=== PATIENT | female | born 1950 | race Caucasian/White ===

== ENCOUNTER 2018-06-20 15:52 | Inpatient (IN) | payer MEDICARE ==
[~2018-06-20] VITALS: Ht 172.7 cm; Wt 83.5 kg
--- NOTE | ~2018-06-20 | RHP ---
PATIENT: JONATHAN FREED MEDICAL RECORD: [id number] ACCOUNT: [id number] [facility] : 54 ADMISSION DATE: 06/20/18 REHABILITATION HISTORY AND PHYSICAL EXAMINATION POST ADMISSION PHYSICIAN EXAMINATION ADMITTING DIAGNOSIS: Disuse myopathy. HISTORY OF PRESENT ILLNESS: The patient admitted to the inpatient rehab for disuse myopathy. She is a 67-year-old female patient, has been in a correction facility receiving a lower level of care, but has progressed up to tolerating 3 hours of therapy per day, been in and out of her acute hospital during her stay secondary to leukocytosis and most recent hospitalization for urinary retention obstruction. She has had a Medrano catheter placed for a neurogenic bladder. She has had a short stay in April in acute inpatient rehab for a couple days for developing blood clots in her lower extremities causing her being unable to move them. She was hospitalized, required an aortofemoral runoff study and a TPA treatment. She has got a past medical history of arthritis, coronary artery disease, Graves' disease, hyperlipidemia, hypertension, pneumonia, neuropathy, sleep apnea, hypothyroidism. She has had a thyroid surgery in the past and toe amputation. She is currently requiring close lab monitoring and wound care secondary to some unstagable areas. Medrano catheter is also being managed with close intake and output noted. She has had a GFR of approximately 37, anemia has also been a problem during her stay. She has been having problems also with high blood pressure, deconditioning, debility, impaired mobility, proximal muscle weakness. She is a high fall risk and she has self-care deficit. These are all barriers to her discharge home at this time. The patient has a past history of CVA and lives with her son, daughter, and grandkids. She was set up for moderately independent with her mobility and ADLs prior to this recent hospitalization and decline in her medical and physical condition. She and her family plan for her to return home with home health at her prior level of functioning or better if possible. 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 PAST MEDICAL HISTORY: Significant for arthritis, coronary artery disease, diabetes, Graves disease, hyperlipidemia, neuropathy, pneumonia, sleep apnea, stroke, hypothyroidism, and diabetes. PAST SURGICAL HISTORY: Includes ankle surgery, carotid endarterectomy, cataract removal. She has had surgery on her tibial shaft, foot surgery, hysterectomy, knee abscess, thyroidectomy, toe amputations, and tonsillectomy. ALLERGIES: PENICILLIN, HALDOL, CODEINE, HYDROCODONE, OXYCODONE, STELAZINE, THORAZINE, TYLOX, MELLARIL, AND HYDROCORTISONE. CURRENT MEDICATIONS: Include insulin, she is on 15 units daily of Lantus. She is on a beta carotene vitamin daily. She is on Synthroid 175 mcg daily, duloxetine 60 mg daily, amlodipine 10 mg daily, Tylenol 650 mg q.6 hours p.r.n., Skelaxin 800 mg q.8 hours p.r.n., she is on a low-resistant sliding scale with Humalog, hydralazine 10 mg q.8 hours. She is on Neurontin 100 mg t.i.d., HISTORY AND PHYSICAL [id number] JONATHAN FREED metoprolol 25 mg b.i.d., Mevacor 20 mg at bedtime. HABITS: Does have a history of tobacco use, but not currently. No alcohol use. FAMILY HISTORY: Noncontributory. SOCIAL HISTORY: The patient hopes to return back home with her family members get back to her prior level of functioning. REVIEW OF SYSTEMS: GENERAL: Does complain of weakness and fatigue. HEENT: Denies cold, cough, or congestion. CARDIOVASCULAR: Denies chest pain. PHYSICAL EXAMINATION: VITAL SIGNS: Stable, afebrile. GENERAL: A somewhat obese female, in no distress upon exam. HEENT: Normocephalic and atraumatic. Mucosa moist. NECK: Supple. No lymphadenopathy. LUNGS: Clear at this time with no wheeze, rhonchi, or rales. HEART: Regular rate and rhythm. No murmurs, rubs or gallops. ABDOMEN: Soft, benign, and nontender, nondistended. Positive bowel sounds times 4. EXTREMITIES: No clubbing, cyanosis or edema. NEUROLOGIC: She does have noted proximal muscle weakness, difficulty rising from the bed to the wheelchair. LABORATORY DATA: White count is 9.5, H&H of 7.5 and 23.3, and platelet count was noted to be 712. Her sodium is 142, potassium 3.8, BUN and creatinine of 36 and 1.1, and blood sugar is noted to be 106. Admit UA did show 2+ blood. She had 2+ leukocyte esterase and many bacteria. ASSESSMENT: This is a 67-year-old female patient admitted to rehab with a working diagnosis of disuse myopathy. The patient has potential to make improvement. We instituted the following multidisciplinary therapies include, but not limited to physical, occupational, respiratory, speech, nutritional services, prosthetics and orthotics. Given her complex medical condition and risk for more complications, rehabilitation services cannot be provided at a low level of care such as correction facility. PLAN: 1. Admit to [facility] for intensive inpatient therapy to include the following disciplines: A. Physical therapy to improve gait, all transfer skills and bed mobility to a modified independent level. B. Occupational therapy to a modified independent level. C. Case management to assist with discharge planning and placement options. D. Nutrition to assist with nutritional needs. E. Rehabilitation nursing to assist in monitoring the patient's underlying medical conditions and to assist with any type of bowel or bladder management. 2. The patient's current medication and medical care will be continued. 3. The patient will be placed on standard fall precautions. 4. The patient's estimated length of stay is approximately 7-10 days. 5. I am going to go ahead and treat her UA and see again in the a.m. HISTORY AND PHYSICAL [id number] JONATHAN FREED TRANSINT:[id number] Voice Confirmation ID: [id number] DOCUMENT ID: [id number] 07/06/2018 Edited for gypsy DE LEON notes whether there has been none or any medical/functional change since admission: - No change since preadmission screen. MOISES attests patient continues to be appropriate for IRF: - Continues to be appropriate. ALEXI GOETZ MD CC: [id number] DICTATION DATE: 06/21/18821 BLOOD BANK TECHNICIAN: 06/21/18932 ADM IN [facility] [address] [place] [address]
[2018-06-20 17:51] VITALS: BP 138/49; BMI 28.0
[2018-06-20] MEDS ORDERED: SKELAXIN800 MG PO (18:10)
[2018-06-20] MEDS ORDERED: GABAPENTIN100 MG PO (18:11)
[2018-06-20] MEDS ORDERED: NORVASC10 MG PO (18:13)
[2018-06-20] MEDS ORDERED: CYMBALTA60 MG PO (18:20)
[2018-06-20] MEDS ORDERED: HYDRALAZINE HCL25 MG PO (18:20)
[2018-06-20] MEDS ORDERED: SYNTHROID175 MCG PO (18:24)
[2018-06-20] MEDS ORDERED: LOVASTATIN20 MG PO (18:26)
[2018-06-20] MEDS ORDERED: MULTI-DAY VITAM1 TAB PO (18:28)
[2018-06-20] MEDS ORDERED: METOPROLOL TART25 MG PO (18:29)
[2018-06-20] MEDS ORDERED: ACETAMINOPHEN325 MG PO (18:30)
[2018-06-20] MEDS ORDERED: NOVOLOG100 UNIT/1 SC (18:31)
[2018-06-20] MEDS ORDERED: LANTUS SOL100 UNIT/1 SC (18:34)
[2018-06-20 19:00] VITALS: BP 139/47
--- NOTE | 2018-06-20 19:14 | NUR ---
WOUND NOTES: HAS BEEN HAVING DSG CHANGED EVERY OTHER DAY. LEFT FOOT, BALL OF FOOT, STAGE II, 2X2.5 CM LEFT HEEL- UNSTAGEABLE (ESCAR) 3X2 CM LLE, INSIDE LEG IS BRUISED PURPLE LEFT BIG TOE, DEEP TISSUE INJURY, 0.5X1.5 CM LEFT FOOT PINKY TOE, LATERAL, STAGE II 3X3 CM LEFT KNEE, UNSTAGEABLE (ESCAR), 3X4 CM LLE THIGH, POSTERIOR, BRUISING COCCYX, LEFT SIDE UNSTAGEABLE 0.3X0.3 CM RIGHT FOOT, LATERAL, STAGE II 2X1.5 CM RIGHT FOOT, BALL OF FOOT, UNSTAGEABLE (ESCAR), 0.5X0.3 CM RIGHT FOOT, 1/2 TOE GONE DUE TO INJURY RIGHT FOOT PINKY TOE AMPUTATED (OLD)
[2018-06-20 22:41] LABS: APPEARANCE HAZY (CLEAR); BILIRUBIN NEGATIVE (NEGATIVE); COLOR YELLOW (YELLOW); GLUCOSE NEGATIVE (NEGATIVE); KETONE NEGATIVE (NEGATIVE); NITRITE NEGATIVE (NEGATIVE); PROTEIN 1+ mg/dL (NEGATIVE); SPECIFIC GRAVITY 1.015 (1.005-1.020); UROBILINOGEN NORMAL (NORMAL)
[2018-06-20 22:46] LABS: BACTERIA MANY /hpf (NONE SEEN); EPITHELIAL CELLS 0-5 /hpf (0-5); WHITE CELLS - URINE >50 /hpf (0-5); YEAST >1+ /hpf (NONE SEEN)
--- NOTE | 2018-06-20 22:53 | NUR ---
PT IN BED LOW POSITION, EYES CLOSED, AROUSES EASILY TO VOICE, NO NEEDS NOTED, FLUIDS AND CALL LIGHT WITHIN REACH
[2018-06-21 07:34] LABS: ANION GAP 14.1 mmol/L (8-16); CALCIUM 8.5 mg/dL (8.5-10.1); CARBON DIOXIDE 22.7 mmol/L (21.0-32.0); CREATININE - SERUM 1.1 mg/dL (0.6-1.3); POTASSIUM - SERUM 3.8 mmol/L (3.5-5.1)
[2018-06-21 07:56] LABS: BASOPHILS 1.6 % (0-2); EOSINOPHILS 2.6 % (0-7); HEMATOCRIT 23.3 % (36.0-48.0); IMMATURE GRANULOCYTES 0.5 % (0-5); LYMPHOCYTES 18.2 % (15-50); MCH 29.5 pg (26.0-34.0); MCHC 32.2 g/dL (31.0-37.0); MCV 91.7 fL (80.0-100.0); MEAN PLATELET VOLUME 9.8 fL (7.4-10.4); MONOCYTES 10.5 % (2-11); NEUTROPHILS 66.6 % (40-80); PLATELET COUNT 712 10x3/uL (130-400); RBC 2.54 10x6/uL (4.00-5.40); RDW 18.1 % (11.5-14.5); WBC 9.5 10x3/uL (4.8-10.8)
[2018-06-21 08:16] LABS: HEMOGLOBIN 7.5 g/dL (12-16)
[2018-06-21 08:18] VITALS: BP 153/56
--- NOTE | 2018-06-21 09:47 | NUR ---
SPOKE WITH [facility] MACHINE NURSE RE: MULT WOUNDS THAT NEED MEASURED, DOCUMENTED AND DRESSING CHANGE ORDERS. OT IS GETTING PATIENT IN SHOWER AT THIS TIME.
[2018-06-21 10:13] VITALS: Ht 172.7 cm; Wt 83.5 kg
--- NOTE | 2018-06-21 10:43 | MORECARE ---
CASE MANAGEMENT DISCHARGE SUMMARY PATIENT: JONATHAN FREED UNIT: [id number] ADM DATE: 06/20/18 AGE: 67 : 52 SEX: F ROOM/BED: D.1108 AUTHOR: FRIEDA PAULA PHYSICIAN: REFERRING PHYSICIAN: ALEXI GOETZ MD DATE OF SERVICE: 06/21/18 Discharge Plan Patient Name: JONATHAN FREED Facility: [facility]:[place] : 1950 Planned Disposition: Home Anticipated Discharge Date: 06/23/18 Discharge Date: Expected LOS: 3 Initial Reviewer: [email or web address] Initial Review Date: 06/20/2018 Generated: 06/21/18 11:42 am Patient Name: JONATHAN FREED Page [id number] at 1043 All edits/amendments must be made on the electronic document DICTATION DATE: 06/21/18 1042 HYDROGRAPHIC ENGINEER: GARCIELA 06/21/18 1042 RPT#: [id number] DC DATE: STATUS: ADM IN [facility] [address] [place] [address] END OF REPORT
--- NOTE | 2018-06-21 10:52 | MORECARE ---
CASE MANAGEMENT DISCHARGE SUMMARY PATIENT: JONATHAN FREED UNIT: [id number] ADM DATE: 06/20/18 AGE: 67 : 52 SEX: F ROOM/BED: D.1108 AUTHOR: NISA,DOC PHYSICIAN: REFERRING PHYSICIAN: ALEXI GOETZ MD DATE OF SERVICE: 06/21/18 Discharge Plan Patient Name: JONATHAN FREED Facility: [facility]:[place] : 1950 Planned Disposition: Home Anticipated Discharge Date: 06/23/18 Discharge Date: Expected LOS: 3 Initial Reviewer: [email or web address] Initial Review Date: 06/20/2018 Generated: 06/21/18 11:52 am DCP- Discharge Planning Updated by [email or web address]: Marjan Luna on 06/21/18 9:[address] Patient Name: JONATHAN FREED Admission Status: Elective Accout number: [id number] Admission Date: 06-20-2018 : 1950 Admission Diagnosis: Attending: RACHEL GOETZ Current LOS: 1 Anticipated DC Date: 06-23-2018 Planned Disposition: Home Primary Insurance: MEDICARE REHAB PPS Discharge Planning Comments: CM met with patient to complete initial dc planning assessment. CM educated patient on the CM role and verbal consent given by patient to complete assessment. Patient lives at home independently with her and kids. At discharge patient plans to return home independently and feels this is a safe discharge. CM discussed availability of home health, rehab services, and medical equipment. Patient denied known discharge needs at this time. CM will continue to follow and will assist as needed with dc plans/needs. Future appointments: HAS APPT WITH [facility] AND [facility] IN JULY. Health And Safety Trainer: Marjan Luna RN, [facility] DCPIA - Discharge Planning Initial Assessment Updated by [email or web address]: Marjan Luna on 06/21/18 10:44 am * Is the patient Alert and Oriented? Yes * How many steps to enter\exit or inside your home? Three * PCP Dr. Araiza * Pharmacy [facility] on [address] * Preadmission Environment Home with Family * ADLs Independent * Equipment None * List name and contact numbers for known caregivers / representatives who currently or will assist patient after discharge: [facility] - [phone] * Verbal permission to speak to the caregivers and representatives has been obtained from the patient. Yes * Community resources currently utilized None * Additional services required to return to the preadmission environment? No * Can the patient safely return to the preadmission environment? Yes * Has this patient been hospitalized within the prior 30 days at any hospital? No Last DP export: 06/21/18 9:43 a Patient Name: JONATHAN FREED Page [phone] at 1052 All edits/amendments must be made on the electronic document DICTATION DATE: 06/21/18 105 HEALTHCARE RECRUITER: GRACIELA 06/21/18 1052 RPT#: [id number] NH DATE: STATUS: ADM IN [facility] [address] [place] [address] END OF REPORT
--- NOTE | 2018-06-21 12:18 | NUR ---
Pt admitted 06/20/18 with the following skin issues: Left met head: 1cm x 6cm x esacr (chronic nonhealing ulcer) (pt is diabetic) Left tip of great toe: 1cm x 2cm x escar/scab (chronic nonhealing ulcer) Left heel: 6cm x 4cm x escar (unstageable pressure injury) Left upper knee: 1cm x 1cm x escar (nonhealing chronic) Left lower knee: 3cm x 5cm x escar (nonhealing chronnic) Right plantar foot: 1cm x 1cm x 0.5cm (nonhealing chronic ulcer) (diabetic) Right leg: numerous scratches and bruises Bilateral arms: numerous scratches and bruises Sacrum/coccyx: Stage 2 pressure injury with (0.5cm x 0.5cm) with periwound blanchable red. Treatment at [facility] was medihoney every other day dressing changes. Wound care recommends the same. Wound care will continue to monitor.
--- NOTE | 2018-06-21 12:22 | NUR ---
SEE WOUND CARE ASSESSMENT NOTES FROM [facility] FOR WOUND MEASURMENTS AND WOUND CARE INSTRUCTIONS ON ALL WOUNDS.
--- NOTE | 2018-06-21 15:46 | NUR ---
PRE MEDS GIVEN FOR BLOOD TRANSFUSION. TRANSFUSION CONSENT SIGNED. VSS. FIRST UNIT OF BLOOD VERIFIED WITH ANOTHER NURSE AND BLOOD TRANSFUSION STARTED.
--- NOTE | 2018-06-21 16:33 | NUR ---
NO CHANGE IN ASSESSMENT. CL IN REACH. NO C/O PAIN AT THIS TIME.
--- NOTE | 2018-06-21 18:41 | NUR ---
FIRST UNIT BLOOD TRANSFUSION COMPLETED WO ANY ADVERSE REACTIONS. REPORTED TO KYLER ORTEGA THAT SECOND UNIT BLOOD TRANSFUSION NEEDS TO BE GIVEN.
[2018-06-21 19:00] VITALS: BP 142/55
--- NOTE | 2018-06-21 19:40 | NUR ---
AWAKE AND ALERT. RESPIRATIONS UNLABORED. SECOND UNIT OF PRBC STARTED. SYMPTOMS OF ADVERSE REACTIONS REVIEWED WITH PATIENT. VOICES UNDERSTANDING. NO ACUTE SALINE LOCK TO LEFT HAND/THUMB INTACT WITH NO SIGNS IF INFILTRATION. NOTED VERY LIMITED USE OF LEFT LOWER LEG. AGUILAR PATENT. CALL LIGHT IN REACH.
--- NOTE | 2018-06-21 22:40 | NUR ---
SECOND UNIT OF PRBC COMPLETED AT 2215. NO SIGNS OF ADVERSE REACTION. RESTING IN BED WITH NO ACUTE DISTRESS NOTED.
[2018-06-22 00:17] VITALS: BP 140/51
--- NOTE | 2018-06-22 01:40 | NUR ---
RESTING IN BED. AWAKENS EASILY FOR SCHEDULED MEDICATION. RESPIRATIONS UNLABORED. NO DISTRESS NOTED. CALL LIGHT IN REACH.
--- NOTE | 2018-06-22 04:47 | NUR ---
WOUND CARE DONE. C/O FEELING NEED TO VOID BUT CANT. AGUILAR CATHETER NOTED WITH NO URINE OUTPUT. EXAMINED AND SHOWED AGUILAR CATHETER HAD COME OUT OF BLADDER WITH BULB DEFLATED. PATIETN STATES SHE HAD THE CATHETER FOR ABOUT A WEEK DUE TO BEING UNABLE TO VOID. BLADDER SCAN DONE AND SHOWED 813ML IN BLADDER. NEW AGUILAR CATHETER 16FR INSERTED USING STERILE TECHNIQUE WITH >400ML IMMEDIATE RETURN. SHE STATES SHE FEELS RELIEVED.
[2018-06-22 07:42] LABS: BASOPHILS 0.6 % (0-2); EOSINOPHILS 0.8 % (0-7); IMMATURE GRANULOCYTES 0.5 % (0-5); LYMPHOCYTES 10.4 % (15-50); MCH 30.5 pg (26.0-34.0); MCHC 33.8 g/dL (31.0-37.0); MCV 90.2 fL (80.0-100.0); MEAN PLATELET VOLUME 9.7 fL (7.4-10.4); MONOCYTES 8.4 % (2-11); NEUTROPHILS 79.3 % (40-80); PLATELET COUNT 711 10x3/uL (130-400); RDW 17.7 % (11.5-14.5)
[2018-06-22 07:43] LABS: ANION GAP 11.4 mmol/L (8-16); CALCIUM 8.4 mg/dL (8.5-10.1); CARBON DIOXIDE 24.7 mmol/L (21.0-32.0); CREATININE - SERUM 1.1 mg/dL (0.6-1.3); POTASSIUM - SERUM 4.1 mmol/L (3.5-5.1)
[2018-06-22 07:56] LABS: HEMATOCRIT 29.6 % (36.0-48.0); RBC 3.28 10x6/uL (4.00-5.40); WBC 15.3 10x3/uL (4.8-10.8)
[2018-06-22 08:12] VITALS: BP 144/53
--- NOTE | 2018-06-22 08:15 | NUR ---
PT RESTING IN BED WITH EYES OPEN CALL LIGHT IN REACH NO PROBLEMS WILL MONITER
--- NOTE | 2018-06-22 12:18 | NUR ---
SITTING UP IN WC IN ROOM EATING LUNCH.CL IN REACH.
--- NOTE | 2018-06-22 18:26 | NUR ---
PT RESTING IN BED WITH EYES OPEN CALL LIGHT IN REACH WILL MONITER
[2018-06-22 19:36] VITALS: BP 106/40; BP 145/55
--- NOTE | 2018-06-22 19:44 | NUR ---
AWAKE AND ALERT. RESTING IN BED. RESPIRATIONS UNLABORED. SALINE LOCK TO LEFT HAND INTACT WITH NO SIGNS OF INFILTRATION. AGUILAR PATENT DRAINING VASHTI URINE. NO ACUTE DISTRESS NOTED. CALL LIGHT IN REACH.
--- NOTE | 2018-06-23 04:56 | NUR ---
QUIET HOURS. NO ACUTE CHANGES IN CONDITION THIS SHIFT. AGUILAR PATENT. SALINE LOCK INTACT TO LEFT HAND. NO DISTRESS NOTED.
[2018-06-23 07:11] LABS: ANION GAP 14.3 mmol/L (8-16); CALCIUM 8.2 mg/dL (8.5-10.1); CARBON DIOXIDE 21.8 mmol/L (21.0-32.0); CREATININE - SERUM 1.1 mg/dL (0.6-1.3); POTASSIUM - SERUM 4.1 mmol/L (3.5-5.1)
[2018-06-23 07:20] LABS: BASOPHILS 0.4 % (0-2); EOSINOPHILS 1.7 % (0-7); HEMATOCRIT 29.6 % (36.0-48.0); HEMOGLOBIN 9.7 g/dL (12-16); IMMATURE GRANULOCYTES 0.5 % (0-5); LYMPHOCYTES 12.6 % (15-50); MCH 29.9 pg (26.0-34.0); MCHC 32.8 g/dL (31.0-37.0); MCV 91.4 fL (80.0-100.0); MEAN PLATELET VOLUME 9.9 fL (7.4-10.4); MONOCYTES 9.2 % (2-11); NEUTROPHILS 75.6 % (40-80); PLATELET COUNT 697 10x3/uL (130-400); RBC 3.24 10x6/uL (4.00-5.40); RDW 17.9 % (11.5-14.5)
[2018-06-23 07:39] LABS: WBC 11.3 10x3/uL (4.8-10.8)
[2018-06-23 08:00] VITALS: BP 142/48
--- NOTE | 2018-06-23 08:16 | NUR ---
PATIENT IS ALERT/ORIENT. LYING IN BED FOR BREAKFAST. CALL LIGHT WITHIN REACH. VOICES NO NEEDS. WILL CONTINUE WITH PLAN OF CARE
--- NOTE | 2018-06-23 12:44 | NUR ---
Nutrition Follow Up: Pt stated that her appetite is good. She said that she has taken Evens before and is willing to try again. RD encouraged pt to continue with good po intake. Diet: ADA PO Intake: 89% meal avg BM: 06/22/18 Wound Care note reviewed - pt with multiple ulcers Meds noted including MV Labs reviewed Rec continue current diet. Will order Evens BID. Rec Vit C, Zinc daily. RD following.
--- NOTE | 2018-06-23 13:36 | NUR ---
MAX TO MODERATE ASST FROM BED TO WHEELCHAIR USING SLIDING BOARD AND ASST OF TWO
--- NOTE | 2018-06-23 17:48 | NUR ---
PATIENT SITTING UP IN BED TO EAT SUPPER. CALL LIGHT WITHIN REACH. TALKING ON CELL PHONE.
--- NOTE | 2018-06-23 18:32 | NUR ---
I have reviewed this patient and I concur with the Shift Assessment completed by the Licensed Practical Nurse today this shift.
[2018-06-23 19:29] VITALS: BP 125/43
--- NOTE | 2018-06-23 19:29 | NUR ---
GREETED PATIENT AND INTRODUCED MYSELF. PATIENT IS LAYING IN SUPINE POSITION RESTING. DENIES ANY EVIDENCE OF PAIN. VITAL SIGNS TAKEN.
--- NOTE | 2018-06-23 23:04 | NUR ---
PATIENT RESTING QUIETLY LAYING IN SUPINE POSITION. HOB AT 30 DEGREES. RESPIRATIONS EVEN. NO S/S OF DISTRESS. SR UP X 2. BED IN LOWEST POSITION. CALL LIGHT IN REACH.
--- NOTE | 2018-06-24 07:24 | NUR ---
ALERT AND ORIENTED. NO C/O PAIN. RESP EVEN AND UNLABORED. CL IN REACH.
[2018-06-24 08:25] VITALS: BP 163/64
--- NOTE | 2018-06-24 09:48 | NUR ---
MOD ASSIST WITH SLIDEBOARD BED TO . PARTICIPATING IN THERAPY AT THIS TIME.
--- NOTE | 2018-06-24 11:25 | NUR ---
PATIENT STATES BATHED PER OT THIS AM.
--- NOTE | 2018-06-24 12:47 | NUR ---
NO DISTRESS NOTED. CL IN REACH. RESP EVEN AND UNLABORED.
[2018-06-24 15:56] VITALS: BP 145/55
--- NOTE | 2018-06-24 17:32 | NUR ---
SITTING IN WC EATING DINNER. CHAIR ALARM IS ON.
[2018-06-24 19:04] VITALS: BP 136/46
--- NOTE | 2018-06-24 19:04 | NUR ---
GREETED PATIENT AND INTRODUCED MYSELF. PATIENT IS LAYING IN BED IN SUPINE POSITION. DENIES ANY PAIN AT THIS TIME. VITAL SIGNS OBTAINED. CALL LIGHT IN REACH.
--- NOTE | 2018-06-24 23:00 | NUR ---
PATIENT RESTING QUIETLY WITH EYES CLOSED. HOB AT 30 DEGREES. RESPIRATIONS EVEN. NO S/S OF DISTRESS. SIDE RAILS UP X 2. BED IN LOWEST POSITION. CALL LIGHT IN REACH.
--- NOTE | 2018-06-25 01:39 | NUR ---
RECHECKED PATIENTS BLOOD PRESSURE PRIOR TO ADMINISTRATION OF HYDRALIZINE. BP WAS 145/55.
[2018-06-25 07:40] VITALS: BP 145/55
--- NOTE | 2018-06-25 07:40 | NUR ---
ASSESSMENT AND VS COMPLETED.IS ALERT AND ORIENTED.AGUILAR PSTENT TO GRAVITY WITH CLOUDY YELLOW URINE IN TUBING.WILL CONTINUE WITH CURRENT PLAN OF CARE.CL IN EASY REACH,BED IN LOW POSITION.
[2018-06-25 17:00] VITALS: BP 152/53
[2018-06-25 19:10] VITALS: BP 152/51
--- NOTE | 2018-06-25 19:10 | NUR ---
GREETED PATIENT AND INTRODUCED MYSELF. PATIENT IS LAYING IN BED IN SUPINE POSITION. HOB AT 30 DEGREES. DENIES ANY PAIN AT THIS TIME OR OTHER NEEDS. CALL LIGHT IN REACH. VITAL SIGNS OBTAINED.
--- NOTE | 2018-06-25 19:30 | NUR ---
PATIENT CLEANED OF INCONTINENT BM. PATIENT PRODUCED LARGE FORMED STOOL. REPOSITIONED FOR COMFORT. CALL LIGHT IN REACH.
--- NOTE | 2018-06-26 00:24 | NUR ---
PATIENT RESTING QUIETLY IN SUPINE POSITION. HOB AT 30 DEGREES. RESPIRATIONS EVEN. NO S/S OF DISTRESS. SR UP X 2. BED IN LOWEST POSITION. CALL LIGHT IN REACH.
[2018-06-26 06:27] LABS: BASOPHILS 0.4 % (0-2); EOSINOPHILS 1.8 % (0-7); HEMOGLOBIN 9.8 g/dL (12-16); IMMATURE GRANULOCYTES 0.4 % (0-5); LYMPHOCYTES 16.8 % (15-50); MCH 29.6 pg (26.0-34.0); MCHC 31.6 g/dL (31.0-37.0); MCV 93.7 fL (80.0-100.0); MEAN PLATELET VOLUME 9.9 fL (7.4-10.4); MONOCYTES 9.1 % (2-11); NEUTROPHILS 71.5 % (40-80); PLATELET COUNT 634 10x3/uL (130-400); RBC 3.31 10x6/uL (4.00-5.40); RDW 17.3 % (11.5-14.5); WBC 9.4 10x3/uL (4.8-10.8)
[2018-06-26 06:37] LABS: ANION GAP 9.3 mmol/L (8-16); CALCIUM 8.6 mg/dL (8.5-10.1); CARBON DIOXIDE 26.9 mmol/L (21.0-32.0); CREATININE - SERUM 1.1 mg/dL (0.6-1.3); POTASSIUM - SERUM 4.2 mmol/L (3.5-5.1)
--- NOTE | 2018-06-26 08:00 | NUR ---
PATIENT IS ALERT/ORIENT. CALL LIGHT WITHIN REACH. VOICES NO NEEDS AT THIS TIME. WILL CONTINUE WITH PLAN OF CARE
[2018-06-26 08:01] VITALS: BP 154/60
--- NOTE | 2018-06-26 10:15 | NUR ---
PATIENT IN ROOM, GETTING READY FOR THERAPY. DENIES PAIN/DISC AT THIS TIME.
--- NOTE | 2018-06-26 11:55 | NUR ---
GLUCOSE LEVEL 185, TWO UNITS OF SLIDING SCALE INSULIN GIVEN
--- NOTE | 2018-06-26 17:00 | NUR ---
PATIENT HELPED BACK TO BED BY THERAPY. MAX ASST OF ONE WITH SLIDING BOARD. PATIENT SITTING UP IN BED TO EAT SUPPER
--- NOTE | 2018-06-26 22:07 | NUR ---
PT IN BED LOW POSITION, EYES OPEN, NO NEEDS VERBALIZED OR NOTED, FLUIDS AND CALL LIGHT WITHIN REACH, AGUILAR SECURE AND DRAINING,
[2018-06-27 01:45] VITALS: BP 126/41; BP 135/45
--- NOTE | 2018-06-27 03:04 | NUR ---
PT IN BED LOW POSITION, EYES CLOSED, AROUSES TO VOICE, BREATHING EVEN AND UNLABORED, NO NEEDS NOTED, FLUIDS AND CALL LIGHTS WITHIN REACH
--- NOTE | 2018-06-27 07:35 | NUR ---
RESTING WITH EYES CLOSED. NO DISTRESS NOTED. CL IN REACH.
[2018-06-27 09:06] VITALS: BP 155/60
--- NOTE | 2018-06-27 09:22 | NUR ---
SHOWER DONE PER OT THIS AM.
--- NOTE | 2018-06-27 10:02 | NUR ---
ACCIDENT BM ON ON SHOWER BENCH.
--- NOTE | 2018-06-27 11:28 | NUR ---
PARTICIPATING IN THERPAY THIS AM.
--- NOTE | 2018-06-27 12:46 | NUR ---
Nutrition Follow Up: Pt stated that her appetite is good. She said that she is drinking Evens. RD encouraged pt to continue with good po intake, drink Evens BID, etc. Diet: ADA; Evens BID PO Intake: 97% meal avg BM: 06/27/18 Labs reviewed Meds noted including MV Rec continue current diet, supplement regimen. RD following.
--- NOTE | 2018-06-27 14:45 | NUR ---
PATIENT WAS ADMITTED TO REHAB FROM [facility]. DISCHARGE PLANS ARE FOR PATIENT TO RETURN HOME WITH FAMILY. WILL CONTINUE TO FOLLOW WITH PATIENT.
--- NOTE | 2018-06-27 15:03 | NUR ---
RESTING IN BED WO C/O PAIN. RESP EVEN AND UNLABORED. CL IN REACH. SL UP X2.
[2018-06-27 16:25] VITALS: BP 130/58
--- NOTE | 2018-06-27 17:45 | NUR ---
NO CHANGE IN ASSESSMENT. EATING DINNER. CL IN REACH.
--- NOTE | 2018-06-28 01:24 | NUR ---
PT IN BED LOW POSITION, EYES CLOSED AROUSES EASILY TO VOICE, AGUILAR PATENT AND DRAINING PROPERLY, NO NEEDS NOTED, FLUIDS AND CALL LIGHT WITHIN REACH
[2018-06-28 02:11] VITALS: BP 153/54
[2018-06-28 07:40] LABS: ANION GAP 11.6 mmol/L (8-16); CALCIUM 8.7 mg/dL (8.5-10.1); CARBON DIOXIDE 26.8 mmol/L (21.0-32.0); CREATININE - SERUM 1.1 mg/dL (0.6-1.3); POTASSIUM - SERUM 4.4 mmol/L (3.5-5.1)
[2018-06-28 07:45] LABS: BASOPHILS 0.4 % (0-2); EOSINOPHILS 2.3 % (0-7); HEMATOCRIT 31.7 % (36.0-48.0); HEMOGLOBIN 10.2 g/dL (12-16); IMMATURE GRANULOCYTES 0.2 % (0-5); LYMPHOCYTES 17.6 % (15-50); MCH 29.9 pg (26.0-34.0); MCHC 32.2 g/dL (31.0-37.0); MEAN PLATELET VOLUME 9.9 fL (7.4-10.4); MONOCYTES 9.8 % (2-11); NEUTROPHILS 69.7 % (40-80); PLATELET COUNT 558 10x3/uL (130-400); RBC 3.41 10x6/uL (4.00-5.40); RDW 16.9 % (11.5-14.5); WBC 8.4 10x3/uL (4.8-10.8)
--- NOTE | 2018-06-28 07:56 | NUR ---
ALERT AND ORIENTED. NO DISTRESS NOTED. CL IN REACH. RESP EVEN AND UNLABORED.
[2018-06-28 08:00] VITALS: BP 139/60
--- NOTE | 2018-06-28 12:28 | NUR ---
PARTICIPATED IN THERAPY THIS AM. UP IN EATING LUNCH AT THIS TIME.
[2018-06-28 15:51] VITALS: BP 130/54
--- NOTE | 2018-06-28 16:18 | NUR ---
NO CHANGE IN ASSESSMENT. RESTING WO C/O PAIN. CL IN REACH. BED ALARM ON.
--- NOTE | 2018-06-28 19:31 | NUR ---
AWAKE AND ALERT. ADJUSTING TO ROOM. SON AT BEDSIDE AND SIGNED ADMISSION PAPERWORK. LEFT HIP DRESSING INTACT. SALINE LOCK TO LEFT ARM INTACT. DESIGNER ARCHITECT ON. NO ACUTE DISTRESS NOTED. CALL LIGHT IN REACH.
--- NOTE | 2018-06-28 19:35 | NUR ---
AWAKE AND ALERT. RESTING IN BED WITH NO DISTRESS NOTED. LAUREN PATENT. CALL LIGHT IN REACH.
[2018-06-28 20:29] VITALS: BP 136/52
--- NOTE | 2018-06-29 01:55 | NUR ---
RESTING IN BED WITH RESPIRATIONS UNLABORED. NO C/O DISCOMFORTS. NO DISTRESS NOTED. CALL LIGHT IN REACH.
--- NOTE | 2018-06-29 05:09 | NUR ---
DRESSINGS CHANGES DONE ORDERED. QUIET HOURS. AGUILAR PATENT WITH NOTED SEDIMENT AND CLOUDINESS IN URINE. MESSAGE LEFT FOR DR TO SEE ON ROUNDS. NO DISTRESS NOTED. CALL LIGHT IN REACH.
[2018-06-29 08:38] VITALS: BP 128/47
--- NOTE | 2018-06-29 10:33 | NUR ---
THE PATIENT WAS WATCHING TELEVISION WHEN STAFF ENTERED HER ROOM. BED IS IN THE LOW POSITION WITH SIDERAILS X2 AND CALL LIGHT IN REACH. PATIENT DEMONSTRATES APPROPRIATE USE OF A CALL LIGHT. THE PATIENT APPEARS COMFORTABLE WITH NO QUESTIONS OR CONCERNS AT THIS TIME.
--- NOTE | 2018-06-29 17:42 | NUR ---
THE PATIENT IS AWAKE AND TALKING TO STAFF. SHE HAS NO QUESTIONS OR CONCERNS AT THIS TIME.
[2018-06-29 19:09] VITALS: BP 120/51
--- NOTE | 2018-06-29 19:41 | NUR ---
RESTING IN BED WITH RESPIRATIONS UNLABORED. DRESSINGS INTACTTO BLES AND COCCYX. AGUILAR PATENT. NO DISTRESS NOTED. CALL LIGHT IN REACH.
--- NOTE | 2018-06-30 05:16 | NUR ---
QUIET HOURS. RESTING IN BED. AGUILAR PATENT. NO ACUTE CHANGES IN CONDITION THIS SHIFT.
[2018-06-30 06:05] LABS: BASOPHILS 0.3 % (0-2); EOSINOPHILS 1.1 % (0-7); HEMOGLOBIN 9.9 g/dL (12-16); IMMATURE GRANULOCYTES 0.2 % (0-5); LYMPHOCYTES 15.4 % (15-50); MCHC 31.9 g/dL (31.0-37.0); MCV 93.9 fL (80.0-100.0); MEAN PLATELET VOLUME 9.6 fL (7.4-10.4); MONOCYTES 10.3 % (2-11); NEUTROPHILS 72.7 % (40-80); PLATELET COUNT 486 10x3/uL (130-400); RDW 16.8 % (11.5-14.5)
[2018-06-30 06:20] LABS: ANION GAP 11.9 mmol/L (8-16); CALCIUM 8.6 mg/dL (8.5-10.1); CARBON DIOXIDE 25.6 mmol/L (21.0-32.0); CREATININE - SERUM 1.2 mg/dL (0.6-1.3); POTASSIUM - SERUM 4.5 mmol/L (3.5-5.1)
--- NOTE | 2018-06-30 18:47 | NUR ---
PT RESTING IN BED WITH EYES OPEN CALL LIGHT IN REACH NO PROBLEMS WILL MONITER
--- NOTE | 2018-06-30 19:19 | NUR ---
PATIENT IS RESTING IN HER BED. SHE DENIES ANY NEEDS AT THIS TIME. BED IS DOWN LOW WITH SIDE RAILS UP X2. CALL LIGHT IS IN REACH.
[2018-06-30 20:00] VITALS: BP 134/49
--- NOTE | 2018-07-01 | NUR ---
PATIENT IS SLEEPING. BED IS DOWN LOW WITH SIDE RAILS UP X2. CALL LIGHT IS IN REACH.
--- NOTE | 2018-07-01 04:00 | NUR ---
PATIENT IS SITTING UP ON SIDE OF THE BED. HE DENIES ANY NEEDS. BED IS DOWN LOW WITH SIDE RAILS UP X2. CALL LIGHT IS IN REACH.
--- NOTE | 2018-07-01 04:02 | NUR ---
PATIENT IS SLEEPING. NO SIGNS OF DISTRESS. BED IS DOWN LOW WITH SIDE RAILS UP X2 AND CALL LIGHT IN REACH.
--- NOTE | 2018-07-01 09:00 | NUR ---
PT AM MEDS ADMINISTERED. PT DENIES NEEDS. WCTM.
--- NOTE | 2018-07-01 17:14 | NUR ---
PT EATING DINNER, DENIES NEEDS. WCTM.
--- NOTE | 2018-07-01 18:55 | NUR ---
PATIENT IS RESTING IN HER BED WITH EYES CLOSED. NO SIGNS OF DISTRESS. BED IS DOWN LOW WITH SIDE RAILS UP X2. CALL LIGHT IS IN REACH.
[2018-07-01 20:00] VITALS: BP 137/50
--- NOTE | 2018-07-01 20:35 | NUR ---
PATIENT'S DRESSING CHANGE AND BED BATH COMPLETE.
--- NOTE | 2018-07-02 | NUR ---
PATIENT IS RESTING IN HER BED AND APPEARS TO BE SLEEPING. HER BED IS DOWN LOW WITH SIDE RAILS UP X2. CALL LIGHT IS IN REACH.
--- NOTE | 2018-07-02 04:00 | NUR ---
PATIENT IS RESTING IN HER BED WITH EYES CLOSED.
--- NOTE | 2018-07-02 08:00 | NUR ---
RESTING QUIETLY.EATING BREAKFAST.CL IN REACH.
[2018-07-02 08:03] VITALS: BP 142/53
--- NOTE | 2018-07-02 09:27 | NUR ---
PATIENT SITTING UP IN BED AFTER BREAKFAST, READING A NEW PAPER. PATIENT IS ALERT/ORIENT. CALL LIGHT WITHIN REACH. VOICES NO NEEDS AT THIS TIME. WILL CONTINUE WITH PLAN OF CARE
--- NOTE | 2018-07-02 11:55 | NUR ---
GLUCOSE LEVEL 172. TWO UNITS OF SLIDING SCALE INSULIN GIVEN PER ORDERS
--- NOTE | 2018-07-02 16:08 | NUR ---
PATIENT IS A TOTAL ASST FROM BED TO WHEELCHAIR USING A SLIDING BOARD AND ASST OF ONE TO TWO PEOPLE
[2018-07-02 19:16] VITALS: BP 139/46
--- NOTE | 2018-07-02 19:19 | NUR ---
AWAKE AND ALERT. RESTING IN BED. RESPIRATIONS UNLABORED. AGUILAR PATENT. CURRENTLY ON ANTIBIOTIC THERARY RELATED TO UTI WITH NO SIGNS OF ADVERSE REACTION. CALL LIGHT IN REACH. NO DISTRESS NOTED.
--- NOTE | 2018-07-03 02:07 | NUR ---
RESTING IN BED WITH RESPIRATIONS UNLABORED AND NO DISTRESS NOTED. LAUREN PATENT. CALL LIGHT IN REACH.
--- NOTE | 2018-07-03 05:30 | NUR ---
DRESSING CHANGES DONE. QUIET HOURS. NO ACUTE CHANGES IN CONDITION THIS SHIFT. NO DISTRESS NOTED. AGUILAR PATENT WITH CLOUDY URINE WITH SEDIMENT NOTED. IS ON ANTIBIOTICS RELATED TO UTI.
[2018-07-03 06:19] LABS: BASOPHILS 0.5 % (0-2); EOSINOPHILS 1.8 % (0-7); HEMATOCRIT 31.9 % (36.0-48.0); HEMOGLOBIN 10.1 g/dL (12-16); IMMATURE GRANULOCYTES 0.3 % (0-5); LYMPHOCYTES 19.8 % (15-50); MCH 29.9 pg (26.0-34.0); MCHC 31.7 g/dL (31.0-37.0); MCV 94.4 fL (80.0-100.0); MEAN PLATELET VOLUME 10.2 fL (7.4-10.4); MONOCYTES 13.9 % (2-11); NEUTROPHILS 63.7 % (40-80); PLATELET COUNT 508 10x3/uL (130-400); RBC 3.38 10x6/uL (4.00-5.40); WBC 7.9 10x3/uL (4.8-10.8)
[2018-07-03 06:24] LABS: ANION GAP 13.2 mmol/L (8-16); CALCIUM 8.6 mg/dL (8.5-10.1); CREATININE - SERUM 1.2 mg/dL (0.6-1.3); POTASSIUM - SERUM 4.2 mmol/L (3.5-5.1)
--- NOTE | 2018-07-03 08:15 | NUR ---
PT RESTING IN BED EATING BREAKFAST TOLERATING WELL WILL MONITER
--- NOTE | 2018-07-03 09:41 | NUR ---
Nutrition Follow Up: Chart reviewed Diet: ADA; Evens BID PO Intake: 75% meal avg BM: 06/28/18 - no BM x 5 days Labs reviewed Meds noted including MV Rec continue current diet, supplement regimen. RD following.
--- NOTE | 2018-07-03 16:39 | NUR ---
PT RESTING IN BED WITH EYES OPEN CALL LIGHT IN REACH NO PROBLEMS WILL MONITER
--- NOTE | 2018-07-03 17:07 | NUR ---
PT RESTING IN BED WITH EYES OPEN CALL LIGHT IN REACH WILL MONITER
--- NOTE | 2018-07-03 18:05 | NUR ---
LaYING IN BED WATCHING TV. DENIES NEEDS. CALL LIGHT IN REACH
--- NOTE | 2018-07-03 23:37 | NUR ---
PT IN BED LOW POSITION, WATCHING TV, PLEASANT, NO NEEDS VERBALIZED, FLUIDS AND CALL LIGHT WITHIN REACH
--- NOTE | 2018-07-04 01:45 | NUR ---
PT IN BEDLOW POSITION, EYES CLOSED, AROUSES EASILY TO VOICE, NO NEEDS NOTED, FLUIDS AND CALL LIGHT WITHIN REACH
[2018-07-04 03:48] VITALS: BP 119/46
--- NOTE | 2018-07-04 09:45 | NUR ---
PT PARTICIPATING IN THERAPY AT THIS TIME. DENIES NEEDS. WCTM.
[2018-07-04 09:47] VITALS: BP 132/52
--- NOTE | 2018-07-04 18:31 | NUR ---
PT RESTING IN BED, DENIES NEEDS. WCTM.
[2018-07-04 20:00] VITALS: BP 134/41
--- NOTE | 2018-07-04 20:10 | NUR ---
PATIENT IS RESTING IN HER BED WITH EYES CLOSED. BED IS DOWN LOW WITH SIDE RAILS UP X2. CALL LIGHT IS IN REACH.
--- NOTE | 2018-07-05 | NUR ---
PATIENT IS SLEEPING.
[2018-07-05 06:18] LABS: BASOPHILS 0.4 % (0-2); EOSINOPHILS 2.6 % (0-7); HEMATOCRIT 30.4 % (36.0-48.0); HEMOGLOBIN 9.6 g/dL (12-16); IMMATURE GRANULOCYTES 0.2 % (0-5); LYMPHOCYTES 19.2 % (15-50); MCH 29.5 pg (26.0-34.0); MCHC 31.6 g/dL (31.0-37.0); MCV 93.5 fL (80.0-100.0); NEUTROPHILS 61.6 % (40-80); PLATELET COUNT 474 10x3/uL (130-400); RBC 3.25 10x6/uL (4.00-5.40)
[2018-07-05 06:35] LABS: ANION GAP 11.9 mmol/L (8-16); CALCIUM 8.4 mg/dL (8.5-10.1); CARBON DIOXIDE 25.1 mmol/L (21.0-32.0); CREATININE - SERUM 1.2 mg/dL (0.6-1.3)
--- NOTE | 2018-07-05 08:41 | NUR ---
Wound care recommends continuing with medihoney to BLE wounds and mepilex to sacrum. Also continue assisting/reminding pt to turn/reposition every 2 hours while in bed and float heels. Wound care continues monitoring.
--- NOTE | 2018-07-05 09:20 | NUR ---
PT AM MEDS ADMINISTERED. BP MEDS HELD D/T BP OF 116/38. PT PARTICIPATING IN THERAPY AT THIS TIME AND DENIES NEEDS. WCTM.
[2018-07-05 10:53] VITALS: BP 116/38
--- NOTE | 2018-07-05 16:13 | NUR ---
CARE TEAM MEETING: PATIENT PROGRESSING IN THERAPY AND WILL DISCHARGE HOME WITH FAMILY IN AM. WILL CONTINUE TO FOLLOW WITH PATIENT
--- NOTE | 2018-07-05 17:51 | NUR ---
PT EATING DINNER, DENIES NEEDS. WCTM.
--- NOTE | 2018-07-05 19:09 | NUR ---
PATIENT IS RESTING IN HER BED. SHE DENIES ANY NEEDS.
[2018-07-05 20:30] VITALS: BP 135/75; BP 139/47
--- NOTE | 2018-07-06 | NUR ---
PATIENT IS SLEEPING.
--- NOTE | 2018-07-06 04:00 | NUR ---
PATIENT IS SLEEPING.
--- NOTE | 2018-07-06 08:15 | NUR ---
PT RESTING IN BED EATING BREAKFAST CALL LIGHT IN REACH WILL MONITER
--- NOTE | 2018-07-06 09:57 | NUR ---
PATIENT DISCHARGING HOME TODAY WITH FAMILY. [facility] WILL PROVIDE THERAPY AT HOME. JC HAS DELIVERED A WHEELCHAIR TO PATIENT. JEANNE GRANADOS 07/14/18 @ 10:10, DR. WOLFF OFFICE WILL CALL PATIENT WITH AN APPOINTMENT. PATIENT CHOICE FORM AND IMFM FORMS SIGNED, COPY GIVEN TO PATIENT AND FILED IN CHART. DISCHARGE INSTRUCTIONS WITH FIM DATA FAXED TO PCP, HOME HEALTH AND REVIEWED WITH PATIENT.
--- NOTE | 2018-07-06 10:08 | NUR ---
SITTING UP IN BED READING PAPER.CALL LIGHT IN REACH.
--- NOTE | 2018-07-06 16:45 | NUR ---
PT DISCHARGED TO HOME WITH SON VIA WHEELCHAIR DISCHARGE SUMMARY AND MEDS REVIEWED NO QUESTIONS MEDS CALLED INTO [facility] IN [place]
== END 2018-07-06 17:07 | disposition home health service (06) | DRG 92 ==
LOC: D.REHAB 15:52
PROVIDERS: ADMIT Emergency Medicine; ATTEND Emergency Medicine
DX: G72.89 Other specified myopathies (principal); N17.9 Acute kidney failure, unspecified; N39.0 Urinary tract infection, site not specified; N18.4 Chronic kidney disease, stage 4 (severe); E11.65 Type 2 diabetes mellitus with hyperglycemia; E11.42 Type 2 diabetes mellitus with diabetic polyneuropathy; I12.9 Hypertensive chronic kidney disease with stage 1 through stage 4 chronic kidney disease, or unspecified chronic kidney disease; E11.22 Type 2 diabetes mellitus with diabetic chronic kidney disease; R53.81 Other malaise; R53.1 Weakness; E88.09 Other disorders of plasma-protein metabolism, not elsewhere classified; I73.9 Peripheral vascular disease, unspecified; E56.9 Vitamin deficiency, unspecified; D64.9 Anemia, unspecified; N31.9 Neuromuscular dysfunction of bladder, unspecified; M62.838 Other muscle spasm; F32.9 Major depressive disorder, single episode, unspecified; E03.9 Hypothyroidism, unspecified; E11.621 Type 2 diabetes mellitus with foot ulcer

== ENCOUNTER 2018-07-12 15:15 | Inpatient (IN) | payer MEDICARE ==
[~2018-07-12] VITALS: Ht 172.7 cm; Wt 85.3 kg
[~2018-07-12 15:15] MED LIST: ACETAMINOPHEN325 MG PO; CYMBALTA60 MG PO; GABAPENTIN100 MG PO; HYDRALAZINE HCL25 MG PO; LANTUS SOL100 UNIT/1 SC; LOVASTATIN20 MG PO; METOPROLOL TART25 MG PO; MULTI-DAY VITAM1 TAB PO; NORVASC10 MG PO; NOVOLOG100 UNIT/1 SC; SKELAXIN800 MG PO; SYNTHROID175 MCG PO
[2018-07-12 18:00] VITALS: BP 153/46
--- NOTE | 2018-07-12 18:00 | NUR ---
TO ER#6, ASSUMED CARE OF PT. 2 MAN ASSIST FROM W/C TO BED. PT HAS FC DRAINING TO BSB WITH MILKY YELLOWISH/WHITE URINE.. PT A/OX3. RESP EVEN/UNLABORED. SKIN W/D/P. PT [facility]
--- NOTE | 2018-07-12 18:24 | NUR ---
URINE SPEC ASPIRATED FROM FC, LABELED AT BS AND SENT TO LAB
[2018-07-12 18:30] LABS: BASOPHILS 0.2 % (0-2); EOSINOPHILS 0.2 % (0-7); HEMATOCRIT 40.7 % (36.0-48.0); HEMOGLOBIN 13.1 g/dL (12-16); IMMATURE GRANULOCYTES 0.4 % (0-5); LYMPHOCYTES 8.6 % (15-50); MCH 30.3 pg (26.0-34.0); MCHC 32.2 g/dL (31.0-37.0); MEAN PLATELET VOLUME 10.6 fL (7.4-10.4); MONOCYTES 9.5 % (2-11); NEUTROPHILS 81.1 % (40-80); PLATELET COUNT 483 10x3/uL (130-400); RBC 4.33 10x6/uL (4.00-5.40); RDW 15.3 % (11.5-14.5); WBC 18.2 10x3/uL (4.8-10.8)
[2018-07-12 18:37] LABS: ALBUMIN 2.2 g/dL (3.4-5.0); ANION GAP 14.9 mmol/L (8-16); BILIRUBIN - TOTAL 0.35 mg/dL (0.2-1.3); CALCIUM 9.3 mg/dL (8.5-10.1); CARBON DIOXIDE 25.2 mmol/L (21.0-32.0); CREATININE - SERUM 1.4 mg/dL (0.6-1.3); POTASSIUM - SERUM 4.1 mmol/L (3.5-5.1); PROTEIN - SERUM 8.4 g/dL (6.4-8.2)
[2018-07-12 18:51] LABS: APPEARANCE TURBID (CLEAR); BILIRUBIN NEGATIVE (NEGATIVE); COLOR YELLOW (YELLOW); GLUCOSE NEGATIVE (NEGATIVE); KETONE NEGATIVE (NEGATIVE); NITRITE NEGATIVE (NEGATIVE); PROTEIN 1+ mg/dL (NEGATIVE); SPECIFIC GRAVITY 1.015 (1.005-1.020); UROBILINOGEN NORMAL (NORMAL)
[2018-07-12 18:52] LABS: BACTERIA MANY /hpf (NONE SEEN); EPITHELIAL CELLS 0-5 /hpf (0-5); RED CELLS - URINE 0-5 /hpf (0-5); WHITE CELLS - URINE >50 /hpf (0-5)
[2018-07-12 19:00] VITALS: BP 155/53
--- NOTE | 2018-07-12 19:15 | NUR ---
BS REPORT TO ALEXI ORTEGA BY SBAR FORMAT
[2018-07-12 20:00] VITALS: BP 151/58
[2018-07-12 20:38] VITALS: BP 154/59
[2018-07-12 21:00] VITALS: BP 152/57
[2018-07-13] VITALS (7 sets, daily range): BP systolic 125–160; BP diastolic 46–57; Ht 172.7 cm; Wt 85.3 kg
--- NOTE | 2018-07-13 00:21 | NUR ---
2129)REC'D.ON STRETCHER FROM ER HOLDING.AA0 X3.DIABETIC SHOE TO RIGHT FOOT.AND BRACE TO LEFT FOOT C/O SOME NUMBNESS TO THAT FOOT AFTER A FALL AND SITING DOWN ON TOP OFF IT I FELL.DECLINED FOR BRACE AND SHOE TO BE TAKEN OFF TO ASSESS
[2018-07-13 06:12] LABS: BASOPHILS 0.1 % (0-2); EOSINOPHILS 0.1 % (0-7); HEMATOCRIT 33.1 % (36.0-48.0); HEMOGLOBIN 10.8 g/dL (12-16); IMMATURE GRANULOCYTES 0.3 % (0-5); LYMPHOCYTES 8.7 % (15-50); MCH 30.1 pg (26.0-34.0); MCHC 32.6 g/dL (31.0-37.0); MCV 92.2 fL (80.0-100.0); MONOCYTES 9.3 % (2-11); NEUTROPHILS 81.5 % (40-80); PLATELET COUNT 478 10x3/uL (130-400); RBC 3.59 10x6/uL (4.00-5.40); RDW 15.5 % (11.5-14.5); WBC 17.1 10x3/uL (4.8-10.8)
[2018-07-13 07:03] LABS: ANION GAP 13.1 mmol/L (8-16); CALCIUM 8.7 mg/dL (8.5-10.1); CARBON DIOXIDE 23.6 mmol/L (21.0-32.0); CREATININE - SERUM 1.2 mg/dL (0.6-1.3); MAGNESIUM - SERUM 1.6 mg/dL (1.8-2.4); PHOSPHOROUS 4.1 mg/dL (2.5-4.9); POTASSIUM - SERUM 3.7 mmol/L (3.5-5.1)
--- NOTE | 2018-07-13 12:58 | NUR ---
PT RESTING IN BED. NO SIGNS OF DISTRESS. IV TO RIGHT AC PATENT NO REDNESS OR TENDERNESS. HAS AGUILAR CAME WITH ON ADMISSION. DENIES ANY FUTHER NEED AT THIS TIME. CALL LIGHT IN REACH. BED LOW POSITION. NO FAMILY AT BEDSIDE AT THIS TIME.
--- NOTE | 2018-07-13 13:43 | NUR ---
I have reviewed this patient and I concur with the Shift Assessment completed by the Licensed Practical Nurse today this shift.
[2018-07-14] VITALS: BP 118/61
--- NOTE | 2018-07-14 03:44 | NUR ---
I have reviewed this patient and I concur with the Shift Assessment completed by the Licensed Practical Nurse today this shift.
[2018-07-14 04:00] VITALS: BP 113/43
[2018-07-14 06:08] LABS: BASOPHILS 0.2 % (0-2); EOSINOPHILS 0.1 % (0-7); HEMATOCRIT 29.4 % (36.0-48.0); HEMOGLOBIN 9.4 g/dL (12-16); IMMATURE GRANULOCYTES 0.3 % (0-5); LYMPHOCYTES 11.9 % (15-50); MCH 29.7 pg (26.0-34.0); MCV 92.7 fL (80.0-100.0); MEAN PLATELET VOLUME 9.9 fL (7.4-10.4); MONOCYTES 10.7 % (2-11); NEUTROPHILS 76.8 % (40-80); PLATELET COUNT 452 10x3/uL (130-400); RBC 3.17 10x6/uL (4.00-5.40); RDW 15.7 % (11.5-14.5); WBC 16.1 10x3/uL (4.8-10.8)
[2018-07-14 06:35] LABS: ANION GAP 12.4 mmol/L (8-16); BILIRUBIN - TOTAL 0.25 mg/dL (0.2-1.3); CALCIUM 8.2 mg/dL (8.5-10.1); CARBON DIOXIDE 22.6 mmol/L (21.0-32.0)
[2018-07-14 06:40] LABS: ALBUMIN 1.4 g/dL (3.4-5.0); CREATININE - SERUM 1.6 mg/dL (0.6-1.3); PROTEIN - SERUM 5.8 g/dL (6.4-8.2)
[2018-07-14 09:49] VITALS: BP 128/46
[2018-07-14 14:38] VITALS: BP 124/46
--- NOTE | 2018-07-14 16:18 | MORECARE ---
CASE MANAGEMENT DISCHARGE SUMMARY PATIENT: JONATHAN FREED UNIT: [id number] ADM DATE: 07/12/18 AGE: 67 : 52 SEX: F ROOM/BED: D.[facility] AUTHOR: FRIEDA PAULA PHYSICIAN: REFERRING PHYSICIAN: ALEXI GOETZ MD DATE OF SERVICE: 07/14/18 Discharge Plan Patient Name: JONATHAN FREED [facility] [facility] 1950 Planned Disposition: Home Hlth Svc w Plan Readm Anticipated Discharge Date: Discharge Date: Expected LOS: Initial Reviewer: [email or web address] Initial Review Date: 07/14/2018 Generated: 07/14/18 5:18 pm DCPIA - Discharge Planning Initial Assessment Updated by [id number]: Eva Frost on 07/14/18 4:16 pm * Is the patient Alert and Oriented? Yes * How many steps to enter\exit or inside your home? /3 * PCP [facility] in [place] * Pharmacy [facility] in [place] * Preadmission Environment Home with Family * ADLs Partial Dependent * Partial ADLs (Assistance needed) Ambulation * Equipment Cane Shower Chair Walker Wheelchair * List name and contact numbers for known caregivers / representatives who currently or will assist patient after discharge: El Freed - son - [phone] Veronica Freed - DIL - [phone] * Verbal permission to speak to the caregivers and representatives has been obtained from the patient. Yes * Community resources currently utilized Home Health * Please name any agencies selected above. [facility] * Additional services required to return to the preadmission environment? No * Can the patient safely return to the preadmission environment? Yes * Has this patient been hospitalized within the prior 30 days at any hospital? Yes Patient Name: JONATHAN FREED Page [id number] at 1618 All edits/amendments must be made on the electronic document DICTATION DATE: 07/14/18 1618 QUILTING SUPERVISOR: GRACIELA 07/14/18 1618 RPT#: [id number] DC DATE: STATUS: ADM IN [facility] [address] [place] [address] END OF REPORT
--- NOTE | 2018-07-14 16:27 | MORECARE ---
CASE MANAGEMENT DISCHARGE SUMMARY PATIENT: JONATHAN FREED UNIT: [id number] ADM DATE: 07/12/18 AGE: 67 : 52 SEX: F ROOM/BED: D.2233 AUTHOR: NISA,DOC PHYSICIAN: REFERRING PHYSICIAN: ALEXI GOETZ MD DATE OF SERVICE: 07/14/18 Discharge Plan Patient Name: JONATHAN FREED Facility: [facility]:[place] : 1950 Planned Disposition: Home Hlth Svc w Plan Readm Anticipated Discharge Date: Discharge Date: Expected LOS: Initial Reviewer: [email or web address] Initial Review Date: 07/14/2018 Generated: 07/14/18 5:27 pm Comments DCP- Discharge Planning Updated by [email or web address]: Eva Frost on 07/14/18 3:[address] Patient Name: JONATHAN FREED Admission Status: ER Accout number: [id number] Admission Date: 07-12-2018 : 1950 Admission Diagnosis: Attending: RACHEL GOETZ Current LOS: 2 Anticipated DC Date: Planned Disposition: Home Hlth Svc w Plan Readm Primary Insurance: MEDICARE A & B Discharge Planning Comments: CM met with patient to complete initial dc planning assessment. CM educated patient on the CM role and verbal consent given by patient to complete assessment. Patient lives at home with her son and daughter in law and 3 grand childred (ages 8 8 and 9). At discharge patient plans to return and feels this is a safe discharge. CM discussed availability of home health, rehab services, and medical equipment. Patient is current with [facility] and plans on resuming this on discharge. I spoke with Yuli with [facility] and they will resume her care on discharge. CM will continue to follow and will assist as needed with dc plans/needs. Commercial Title Examiner: Eva Frost DCPIA - Discharge Planning Initial Assessment Updated by [email or web address]: Eva Frost on 07/14/18 4:16 pm * Is the patient Alert and Oriented? Yes * How many steps to enter\exit or inside your home? 1/3 * PCP [facility] in [place] * Pharmacy [facility] in [place] * Preadmission Environment Home with Family * ADLs Partial Dependent * Partial ADLs (Assistance needed) Ambulation * Equipment Cane Shower Chair Walker Wheelchair * List name and contact numbers for known caregivers / representatives who currently or will assist patient after discharge: El Freed - son - [phone] Veronica Freed - DIL - [phone] * Verbal permission to speak to the caregivers and representatives has been obtained from the patient. Yes * Community resources currently utilized Home Health * Please name any agencies selected above. [facility] * Additional services required to return to the preadmission environment? No * Can the patient safely return to the preadmission environment? Yes * Has this patient been hospitalized within the prior 30 days at any hospital? Yes Coverage Notice Reviewer: [id number] Heidy Frost Notice Issued Date-Time: 07/14/2018 16:19 Notice Type: Patient Choice Letter Notice Delivered To: Patient Relationship to Patient: Self [employer] Name: Delivery Method: HAND - Hand Delivered Radha Days: Prior Verbal Notification: Recipient Understood Notice: Yes Recipient Signature: Yes Med Rec Note Co-signed by Attending: Coverage Notice Comment: JOVITA for [facility] Last DP export: 07/14/18 3:18 p Patient Name: JONATHAN FREED Page [id number] at 1627 All edits/amendments must be made on the electronic document DICTATION DATE: 07/14/181625 MACHINIST MECHANIC: GRACIELA 07/14/181625 RPT#: [id number] DC DATE: STATUS: ADM IN [facility] [address] [place] [address] END OF REPORT
--- NOTE | 2018-07-14 17:08 | NUR ---
I have reviewed this patient and I concur with the Shift Assessment completed by the Licensed Practical Nurse today this shift.
--- NOTE | 2018-07-14 19:45 | NUR ---
PT RESTING IN BED. ALERT AND ORIENTED. NO SIGNS OF DISTRESS. BREATHING EVEN AND UNLABORED. PT STATES NO PROBLEMS AT THIS TIME. IV SITE LT FA DRESSING CLEAN DRY AND INTACT. NO SIGNS OF INFECTION. BOWEL SOUNDS ACITVE. WILL CONTINUE PLAN OF CARE. CALL LIGHT IN REACH. BED LOWERED AND LOCKED. BED RAILS UP X2.
[2018-07-14 19:53] VITALS: BP 124/49
[2018-07-15] VITALS: BP 122/47
--- NOTE | 2018-07-15 03:37 | NUR ---
I have reviewed this patient and I concur with the Shift Assessment completed by the Licensed Practical Nurse today this shift.
[2018-07-15 04:00] VITALS: BP 131/47
[2018-07-15 06:15] LABS: BASOPHILS 0.2 % (0-2); EOSINOPHILS 1.2 % (0-7); HEMOGLOBIN 8.9 g/dL (12-16); IMMATURE GRANULOCYTES 0.3 % (0-5); LYMPHOCYTES 13.1 % (15-50); MCH 29.6 pg (26.0-34.0); MCHC 31.8 g/dL (31.0-37.0); MEAN PLATELET VOLUME 9.7 fL (7.4-10.4); MONOCYTES 11.9 % (2-11); NEUTROPHILS 73.3 % (40-80); PLATELET COUNT 441 10x3/uL (130-400); RBC 3.01 10x6/uL (4.00-5.40); RDW 15.5 % (11.5-14.5); WBC 12.6 10x3/uL (4.8-10.8)
[2018-07-15 06:50] LABS: ALBUMIN 1.3 g/dL (3.4-5.0); ANION GAP 15.6 mmol/L (8-16); BILIRUBIN - TOTAL 0.26 mg/dL (0.2-1.3); CALCIUM 7.7 mg/dL (8.5-10.1); CARBON DIOXIDE 19.3 mmol/L (21.0-32.0); CREATININE - SERUM 1.6 mg/dL (0.6-1.3); POTASSIUM - SERUM 3.9 mmol/L (3.5-5.1); PROTEIN - SERUM 5.8 g/dL (6.4-8.2)
--- NOTE | 2018-07-15 08:00 | NUR ---
PT RESTING AT THIS TIME, NO SIGNS OF DISTRESS NOTED, EASY RISE AND FALL OF CHEST WILL CONTINUE TO MONITOR CL IN REACH
[2018-07-15 09:34] VITALS: BP 148/65
[2018-07-15 13:09] VITALS: BP 145/56
[2018-07-15 16:26] VITALS: BP 131/46
--- NOTE | 2018-07-15 19:35 | NUR ---
LYING IN BED WATCHING TV. ALERT AND ORIENTED X4. RESP EVEN AND NONLABORED. BBS CTA. SCAB NOTED TO RT FOREARM AND BLE. BRACE NOTED TO LT FOOT WITH FOOT DROP. DRSG NOTED TO LT FOOT. 2ND RT TOE AND 5TH TOE ARE AMPUTATED. 1+ EDEAM NOTED TO LLE AND SKIN IS SCALY. CHRONIC AGUILAR CATH PATENT AND DRAINING YELLOW URINE WITH WHITE SEDIMENT. C/O BLADDER PAIN RATING 6. NS @ KVO INFUSING IN LT FOREARM WITHOUT DIFF. NO DISTRESS. SCD NOTED TO RLE. SR ELEVATED X2. CL IN REACH.
--- NOTE | 2018-07-15 19:36 | NUR ---
MEDICATED WITH ULTRAM ORDERED FOR C/O BLADDER PAIN. CL IN REACH.
[2018-07-15 19:52] VITALS: BP 130/56
[2018-07-16] VITALS: BP 136/57
--- NOTE | 2018-07-16 00:52 | NUR ---
RESTING IN BED WITH EYES CLOSED. RESP EVEN AND NONLABORED. NO DISTRESS. CL IN REACH.
[2018-07-16 04:00] VITALS: BP 136/63
[2018-07-16 05:27] LABS: BASOPHILS 0.4 % (0-2); HEMATOCRIT 31.6 % (36.0-48.0); HEMOGLOBIN 10.1 g/dL (12-16); IMMATURE GRANULOCYTES 0.4 % (0-5); MCH 29.5 pg (26.0-34.0); MCV 92.4 fL (80.0-100.0); MONOCYTES 8.4 % (2-11); NEUTROPHILS 75.8 % (40-80); RBC 3.42 10x6/uL (4.00-5.40); RDW 15.3 % (11.5-14.5); WBC 12.5 10x3/uL (4.8-10.8)
[2018-07-16 05:28] LABS: PLATELET COUNT 539 10x3/uL (130-400)
[2018-07-16 05:38] LABS: ALBUMIN 1.5 g/dL (3.4-5.0); ANION GAP 13.2 mmol/L (8-16); BILIRUBIN - TOTAL 0.26 mg/dL (0.2-1.3); CALCIUM 8.4 mg/dL (8.5-10.1); CARBON DIOXIDE 21.8 mmol/L (21.0-32.0); CREATININE - SERUM 1.5 mg/dL (0.6-1.3); PROTEIN - SERUM 6.6 g/dL (6.4-8.2); VANCOMYCIN - TROUGH 26.2 ug/mL (10.0-20.0)
[2018-07-16 09:03] VITALS: BP 137/47
--- NOTE | 2018-07-16 09:25 | NUR ---
PT AAOX4 NO DISTRESS NOTED EASY RISE AND FALL OF CHEST CL IN REACH
[2018-07-16 12:40] VITALS: BP 148/49
--- NOTE | 2018-07-16 15:12 | NUR ---
I have reviewed this patient and I concur with the Shift Assessment completed by the Licensed Practical Nurse today this shift.
[2018-07-16 17:09] VITALS: BP 136/50
--- NOTE | 2018-07-16 19:55 | NUR ---
LYING IN BED. AWAKENED FOR ASSESSMENT. ORIENTED X4. STATES SHES BEEN LAZY TODAY. DENIES PAIN. RESP EVEN AND NONLABORED. AGUILAR CATH PATENT AND DRAINING CLOUDY YELLOW URINE WITH WHITE SEDIMENT. SCD IN USE TO RLE. NS @ KVO INFUSING IN LT FOREARM WITHOUT DIFF. NO DISTRESS. BRACE NOTED TO LT FOOT WITH DRSG NOTED. SR ELEVATED X2. CL IN REACH.
[2018-07-16 20:00] VITALS: BP 131/59
[2018-07-17] VITALS: BP 128/63
--- NOTE | 2018-07-17 01:40 | NUR ---
RESTING QUIETLY WITH EYES CLOSED. RESP EVEN AND NONLABORED. NO DISTRESS. SR ELEVATED X2. CL IN REACH.
[2018-07-17 03:00] VITALS: BP 150/64
--- NOTE | 2018-07-17 05:14 | NUR ---
SAO2 83-85%. ALERT. NO DISTRESS. DENIES SOB. PLACED ON O2 @ 2L/NC. SAO2 94-95% NOW. HOB ELEVATED. DENIES PAIN. FSBS CHECKED 194. STATES SHE FEELS FINE. WILL CONT TO MONITOR. CL IN REACH.
[2018-07-17 06:00] LABS: BASOPHILS 0.5 % (0-2); EOSINOPHILS 1.3 % (0-7); HEMATOCRIT 29.2 % (36.0-48.0); HEMOGLOBIN 9.3 g/dL (12-16); IMMATURE GRANULOCYTES 0.4 % (0-5); LYMPHOCYTES 16.2 % (15-50); MCH 29.3 pg (26.0-34.0); MCHC 31.8 g/dL (31.0-37.0); MCV 92.1 fL (80.0-100.0); MEAN PLATELET VOLUME 9.7 fL (7.4-10.4); MONOCYTES 10.5 % (2-11); NEUTROPHILS 71.1 % (40-80); PLATELET COUNT 532 10x3/uL (130-400); RBC 3.17 10x6/uL (4.00-5.40); RDW 15.3 % (11.5-14.5); WBC 11.9 10x3/uL (4.8-10.8)
[2018-07-17 06:27] LABS: ALBUMIN 1.4 g/dL (3.4-5.0); ANION GAP 14.3 mmol/L (8-16); BILIRUBIN - TOTAL 0.33 mg/dL (0.2-1.3); CALCIUM 8.5 mg/dL (8.5-10.1); CARBON DIOXIDE 21.6 mmol/L (21.0-32.0); CREATININE - SERUM 1.3 mg/dL (0.6-1.3); POTASSIUM - SERUM 3.9 mmol/L (3.5-5.1); PROTEIN - SERUM 6.5 g/dL (6.4-8.2); VANCOMYCIN - RANDOM 17.9 ug/mL (10.0-20.0)
[2018-07-17 08:46] VITALS: BP 153/52
[2018-07-17 12:30] VITALS: BP 133/63
--- NOTE | 2018-07-17 12:50 | NUR ---
PT RESTING IN BED. NO SIGNS OF DISTRESS.IV TO LEFT ARM PATENET NO REDNESS OR TENDERNESS. ON 3L NC. HAS CHRONIC AGUILAR NO KINKS. DENIES ANY FUTHER NEED AT THIS TIME.CALL LIGHT IN REACH. BED LOW POSITION. NO FAMILY AT BEDSIDE AT THIS TIME.
[2018-07-17] MEDS ORDERED: DOXYCYCLINE HY100 M2 PO (13:25)
[2018-07-17 13:48] LABS: % SATURATION 12 % (15-55); IRON 17 ug/dl (35-150); TOTAL IRON BIND CAPACITY 133 ug/dl (260-445); UNSAT IRON BIND CAPACITY 116 ug/dl (150-375)
--- NOTE | 2018-07-17 14:43 | NUR ---
I have reviewed this patient and I concur with the Shift Assessment completed by the Licensed Practical Nurse today this shift.
--- NOTE | 2018-07-17 15:13 | MORECARE ---
CASE MANAGEMENT DISCHARGE SUMMARY PATIENT: JONATHAN FREED UNIT: [id number] ADM DATE: 07/12/18 AGE: 67 : 54 SEX: F ROOM/BED: D.2233 AUTHOR: FRIEDA PAULA PHYSICIAN: REFERRING PHYSICIAN: ALEXI GOETZ MD DATE OF SERVICE: 07/17/18 Discharge Plan Patient Name: JONATHAN FREED Facility: [facility]:[place] : 1950 Planned Disposition: Home Hlth Svc w Plan Readm Anticipated Discharge Date: Discharge Date: Expected LOS: Initial Reviewer: [email or web address] Initial Review Date: 07/14/2018 Generated: 07/17/18 4:12 pm Comments DCP- Discharge Planning Updated by [email or web address]: Eva Frost on 07/17/18 2:[address] Patient Name: JONATHAN FREED Encounter No: [id number] : 1950 Primary Insurance: MEDICARE A & B Anticipated DC Date: Planned Disposition: Home Hlth Svc w Plan Readm External Planned Provider: : DCP follow-up note: Patient and family in agreement with discharge plan. No changes to plan. States her son will take her home. I called Yuli with [facility] and informed of discharge today, clinical faxed including dressing care for heal. Case management will follow and assist as needed. Eva Camejoml DCP- Discharge Planning Updated by [id number]: Eva Camejoml on 07/14/18 3:[address] Patient Name: JONATHAN FREED Admission Status: ER Accout number: [id number] Admission Date: 07-12-2018 : 1950 Admission Diagnosis: Attending: RACHEL GOETZ Current LOS: 2 Anticipated DC Date: Planned Disposition: Home Hlth Svc w Plan Readm Primary Insurance: MEDICARE A & B Discharge Planning Comments: CM met with patient to complete initial dc planning assessment. CM educated patient on the CM role and verbal consent given by patient to complete assessment. Patient lives at home with her son and daughter in law and 3 grand childred (ages 8 8 and 9). At discharge patient plans to return and feels this is a safe discharge. CM discussed availability of home health, rehab services, and medical equipment. Patient is current with [facility] and plans on resuming this on discharge. I spoke with Yuli with [facility] and they will resume her care on discharge. CM will continue to follow and will assist as needed with dc plans/needs. Bulking Machine Operator: Eva Frost DCPIA - Discharge Planning Initial Assessment Updated by [email or web address]: Eva Frost on 07/14/18 4:16 pm * Is the patient Alert and Oriented? Yes * How many steps to enter\exit or inside your home? 03/02 * PCP [facility] in [place] * Pharmacy [facility] in [place] * Preadmission Environment Home with Family * ADLs Partial Dependent * Partial ADLs (Assistance needed) Ambulation * Equipment Cane Shower Chair Walker Wheelchair * List name and contact numbers for known caregivers / representatives who currently or will assist patient after discharge: El Freed - son - [phone] Veronica Freed - DIL - [phone] * Verbal permission to speak to the caregivers and representatives has been obtained from the patient. Yes * Community resources currently utilized Home Health * Please name any agencies selected above. [facility] * Additional services required to return to the preadmission environment? No * Can the patient safely return to the preadmission environment? Yes * Has this patient been hospitalized within the prior 30 days at any hospital? Yes External Providers External Provider: [facility] Next Contact Date: Service Request Date: Service Type: Resolution: Reviewer: Comments: Coverage Notice Reviewer: [email or web address] Heidy Frost Notice Issued Date-Time: 07/14/2018 16:19 Notice Type: Patient Choice Letter Notice Delivered To: Patient Relationship to Patient: Self Real Estate Professional Name: Delivery Method: HAND - Hand Delivered Radha Days: Prior Verbal Notification: Recipient Understood Notice: Yes Recipient Signature: Yes Med Rec Note Co-signed by Attending: Coverage Notice Comment: JOVITA for [facility] Reviewer: [email or web address] Heidy Frost Notice Issued Date-Time: 07/17/2018 14:48 Notice Type: IM Discharge Notice Notice Delivered To: Patient Relationship to Patient: Self Real Estate Professional Name: Delivery Method: HAND - Hand Delivered Radha Days: Prior Verbal Notification: Recipient Understood Notice: Yes Recipient Signature: Yes Med Rec Note Co-signed by Attending: Coverage Notice Comment: IMM explained, signed, given, copy placed in MR Last DP export: 07/14/18 3:27 p Patient Name: JONATHAN FREED Page [id number] at 1513 All edits/amendments must be made on the electronic document DICTATION DATE: 07/17/181511 LIVESTOCK FARM WORKERS: GRACIELA 07/17/181511 RPT#: [id number] DC DATE: STATUS: ADM IN [facility] [address] [place] [address] END OF REPORT
[2018-07-17 17:01] VITALS: BP 165/55
--- NOTE | 2018-07-17 18:13 | NUR ---
DISCHARGE INSTRUCTIONS GIVEN. SEEMS TO UNDERSTAND INSTRUCTIONS. IV OUT TIP INTACT. AGUILAR CHANGED OUT PER DR ORDER AND DRESSING CHANGED ON FOOT PER ORDER. DENIES ANY FUTHER NEED AT THIS TIME. LEFT WITH HOSPITAL STAFF TO GO HOME WITH SON IN [place].
== END 2018-07-17 18:15 | disposition home health service (06) | DRG 673 ==
LOC: D.ER 15:15 → D.MS 20:51
PROVIDERS: Family Medicine; Internal Medicine Nephrology; ADMIT Emergency Medicine; ATTEND Emergency Medicine
PROC: 0JBR0ZZ Excision of Left Foot Subcutaneous Tissue and Fascia, Open Approach (ICD-10-PCS; principal; 2018-07-13)
DX: T83.511A Infection and inflammatory reaction due to indwelling urethral catheter, initial encounter (principal); A41.9 Sepsis, unspecified organism; G72.81 Critical illness myopathy; L97.422 Non-pressure chronic ulcer of left heel and midfoot with fat layer exposed; N39.0 Urinary tract infection, site not specified; E11.69 Type 2 diabetes mellitus with other specified complication; I10 Essential (primary) hypertension; E86.0 Dehydration; L89.602 Pressure ulcer of unspecified heel, stage 2; L89.622 Pressure ulcer of left heel, stage 2